=== PATIENT | male | born 1995 | race Caucasian/White ===

== ENCOUNTER 2023-06-20 15:30 | Outpatient (RCR) | payer BC | END 2023-06-24 | disposition home or self-care (01) | LOC: WSPT | DX: I87.001 Postthrombotic syndrome without complications of right lower extremity (principal) ==

== ENCOUNTER 2023-07-19 15:00 | Outpatient (RCR) | payer BC | END 2023-07-25 | disposition home or self-care (01) | LOC: WSPT | DX: I82.531 Chronic embolism and thrombosis of right popliteal vein (principal) ==

== ENCOUNTER 2023-08-21 15:00 | Outpatient (RCR) | payer BC | END 2023-08-23 | disposition home or self-care (01) | LOC: WSC | DX: I82.531 Chronic embolism and thrombosis of right popliteal vein (principal); Z98.890 Other specified postprocedural states ==

== ENCOUNTER 2023-09-19 15:00 | Outpatient (RCR) | payer BC | END 2023-09-23 | disposition home or self-care (01) | LOC: WSPT | DX: I82.531 Chronic embolism and thrombosis of right popliteal vein (principal); Z98.890 Other specified postprocedural states ==

== ENCOUNTER 2023-11-12 14:15 | Outpatient (RCR) | payer BC | END 2023-11-23 | LOC: WSPT | DX: I87.009 Postthrombotic syndrome without complications of unspecified extremity (principal) ==

== ENCOUNTER 2024-03-04 16:18 | Emergency (ER) | payer BC ==
[~2024-03-04] VITALS: Ht 177.8 cm; Wt 75.0 kg
[2024-03-04 16:24] VITALS: TEMP 98.4
[2024-03-04 17:14] LABS: BASO % 0.4 % (0.0-2.0); EOS # 0.1 K/mm3 (0.0-0.7); EOS % 1.1 % (0.0-4.0); GRAN # 6.7 K/mm3 (1.4-6.5); GRAN % 71.9 % (42.2-75.2); HEMATOCRIT 51.7 % (42.0-52.0); HEMOGLOBIN 17.9 g/dl (13.5-18.0); LYMPH # 1.9 K/mm3 (1.2-3.4); LYMPH % 20.4 % (20.0-51.0); MEAN CELL VOLUME 91 fl (80.0-100.0); MEAN CORPUSCULAR HEMOGLOBIN 31 pg (27-31); MEAN CORPUSCULAR HGB CONC 35 g/dl (33.0-37.0); MEAN PLATELET VOLUME 11.3 fl (7.4-10.4); MONO # 0.6 K/mm3 (0.1-0.6); PLATELET COUNT 290 K/mm3 (130-400); RED BLOOD COUNT 5.71 M/mm3 (4.20-5.60); REDCELL DISTRIBUTION WIDTH-CV 12.6 % (11.5-14.5)
[2024-03-04] MEDS ORDERED: NS 1,000 ML IV ONE (17:15)
[2024-03-04 17:28] LABS: ALANINE AMINOTRANSFERASE 26 U/L (0-55); ALBUMIN 4.6 g/dL (3.5-5.0); ALKALINE PHOSPHATASE 89 U/L (40-150); ANION GAP 12 mmol/L (7-16); AST,SGOT 20 U/L (5-34); BLOOD UREA NITROGEN 7 mg/dL (9-21); CALCIUM 9.5 mg/dL (8.4-10.2); CHLORIDE 106 mEq/L (98-107); GLUCOSE 96 mg/dL (70-99); POTASSIUM 3.5 mEq/L (3.5-4.5); SODIUM 142 mEq/L (136-145); TOTAL PROTEIN 7.3 g/dl (6.2-8.1)
[2024-03-04] MEDS ORDERED: XARELTO10 MG PO (17:32)
[2024-03-04 17:37] LABS: TROPONIN-I < 0.010 ng/mL (0.00-0.033)
[2024-03-04 18:30] VITALS: BP 145/100; PULSE 100
== END 2024-03-04 18:30 | disposition home or self-care (01) ==
LOC: COL.ER 16:18
PROVIDERS: Physician Assistant
DX: R07.89 Other chest pain (principal); Z86.718 Personal history of other venous thrombosis and embolism; Z79.01 Long term (current) use of anticoagulants
CPT/HCPCS: J7030